=== PATIENT | female | born 1995 | race Caucasian/White ===

== ENCOUNTER → 2018-11-24 | Outpatient (CLI) | payer SELFPAY ==
[2018-11-24 18:25] LABS: Chlamydia Trachomatis by PCR Negative (Negative); Neisserai gonorrhoeae by PCR Negative (Negative); Probe Check PASS; Sample Adequacy Control PASS; Specimen Processing Control PASS
[2018-11-30 14:14] LABS: HPV Reflexed? NOT INDICATED
== END | disposition home or self-care (01) ==
LOC: LABSPEC 14:24
PROVIDERS: Visit Provider Obstetrics & Gynecology
DX: Z12.4 Encounter for screening for malignant neoplasm of cervix (principal); Z11.3 Encounter for screening for infections with a predominantly sexual mode of transmission
CPT/HCPCS: 87491; 87591; 88175; G0145

== ENCOUNTER → 2018-12-02 | Outpatient (CLI) | payer SELFPAY ==
[2018-12-02 16:40] LABS: Color, Urine Yellow (Yellow); Glucose, Dipstick Normal (Normal); Ketone-Dipstick Negative (Negative); Leukocyte Esterase-Dipstick 500 /ul (Negative); Nitrite-Dipstick Negative (Negative); Occult Blood-Urine Negative /ul (Negative); Protein-Dipstick Negative (Negative); Urine Bilirubin Dipstick Negative (Negative); Urine Clarity Clear (Clear); Urine Urobilinogen Normal (Normal)
[2018-12-02 17:43] LABS: Absolute Lymphocyte Count 1.23 X10^3/ul (0.83-4.51); Absolute Neutrophil Count 5.4 X10^3/uL (2.0-7.7); Basophil# 0.02 X10^3/uL; Basophil% 0.3 % (0-1); Eosinophil# 0.06 X10^3/uL; Eosinophils% 0.8 % (0-5); Hematocrit 36.2 % (37-47); Hemoglobin 12.4 g/dl (12.0-15.0); Lymphocyte # 1.23 X10^3/ul (4.0); Lymphocyte % 17.2 % (19-41); Mean Corp Hgb Conc 34.3 g/gl (32-36); Mean Corpuscular Hgb 28.9 pg (27.0-32.0); Mean Corpuscular Volume 84.4 fL (81-99); Mean Platelet Vol. 9.8 fl (6.2-12.0); Monocyte# 0.43 X10^3/uL; Neutrophil % 75.4 % (47-70); Platelet Count 240 K/mm3 (150-450); RBC Distribution Width CV 12.5 % (11.6-14.6); RBC Distribution Width SD 37.5 fl (35.1-43.9); Red Blood Count 4.29 M/mm3 (4.2-5.4); White Blood Count 7.2 K/mm3 (4.4-11.0)
[2018-12-02 17:48] LABS: Thyroid Stim Hormone (TSH) 2.74 uIU/mL (0.358-3.74)
[2018-12-02 18:04] LABS: POSITIVE COUNT NO; POSITIVE DIFFERENTIAL NO; POSITIVE MORPHOLOGY NO
[2018-12-02 18:30] LABS: HIV - WCH Non-Reactive (Nonreactive)
[2018-12-04 01:43] LABS: Prenatal RPR NONREACTIVE (NONREACTIVE)
[2018-12-04 13:26] LABS: HEPATITIS B SURFACE AG Negative (Negative); Hep C Antibodies <0.1 s/co ratio (0.0-0.9)
== END | disposition home or self-care (01) ==
LOC: WOBLAB 14:31
PROVIDERS: Visit Provider Obstetrics & Gynecology
DX: Z34.81 Encounter for supervision of other normal pregnancy, first trimester (principal)
CPT/HCPCS: 36415; 81002; 84443; 85025; 86703; 86762; 86803; 87340

== ENCOUNTER → 2019-04-16 | Outpatient (CLI) | payer SELFPAY ==
[2019-04-16 13:44] LABS: Hematocrit 34.6 % (37-47); Hemoglobin 11.3 g/dL (12.0-15.0); Mean Corp Hgb Conc 32.7 g/dL (32-36); Mean Corpuscular Volume 91.8 fL (81-99); Mean Platelet Vol. 9.8 fl (6.2-12.0); Platelet Count 180 K/mm3 (150-450); RBC Distribution Width CV 12.8 % (11.6-14.6); RBC Distribution Width SD 42.5 fl (35.1-43.9); Red Blood Count 3.77 M/mm3 (4.2-5.4); White Blood Count 8.2 K/mm3 (4.4-11.0)
[2019-04-16 13:52] LABS: Glucose Challenge Gest 1H 50g 94 mg/dL (70-140)
== END | disposition home or self-care (01) ==
PROVIDERS: Visit Provider Obstetrics & Gynecology
DX: Z34.82 Encounter for supervision of other normal pregnancy, second trimester (principal)
CPT/HCPCS: 36415; 82950; 85027

== ENCOUNTER → 2019-06-03 | Outpatient (CLI) | payer SELFPAY | END | disposition home or self-care (01) | LOC: LABSPEC 15:27 | PROVIDERS: Visit Provider Obstetrics & Gynecology | DX: O23.43 Unspecified infection of urinary tract in pregnancy, third trimester (principal); Z3A.00 Weeks of gestation of pregnancy not specified | CPT/HCPCS: 87086; 87088 ==

== ENCOUNTER 2019-06-07 19:37 | Inpatient (IN) | payer SELFPAY ==
[2019-06-07] VITALS (10 sets, daily range): BP systolic 104–155; BP diastolic 56–87; PULSE 60–75; RESP 16–18; TEMP 36.3–36.9; O2SAT 96–99; BMI 24.7
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
[2019-06-07] MEDS: Lactated Ringers 1,000 ML 999 ML IV (19:40)
[2019-06-07] MEDS: 0.9% Saline Lock 10 ML Syringe IV ×2 (19:40→23:15)
[2019-06-07 19:50] LABS: ROM Internal Control Test YES-OK TO RESULT pt. (Internal QC); ROM Patient Test Negative (Negative)
--- NOTE | 2019-06-07 19:53 | OP.PCM_ITS ---
Delivery Classification: CRYSTAL Final CARLOS: 07/13/19 Final CARLOS Source: US <20 weeks Gestational age: 34 Weeks and 6 Days doctor who attended delivery (if requested by OB): Keena Campbell supervisor pumping station: Neena Haider Type of Anesthesia:: Spinal - With Duramorph Implants Used: None Date of Procedure: 06/07/19 Pre-Operative Diagnosis: 34-Week 6-Day Gestation with Premature Rupture of Membranes, Breech Presentation, in Active Labor Post-Operative Diagnosis: 34-Week 6-Day Gestation with Premature Rupture of Membranes, Breech Presentation, in Active Labor Indications: Breech Presentation, Premature Rupture of Membranes, Active Labor Description of Procedure: Surgeon: Pankaj Hua MD, FACOG Anesthesia: Jr Kenny CRNA Procedure: Primary Low Transverse Cervical Caesarean Section Findings: Viable male with Apgars of 7/9 in aneta breech presentation with clear amniotic fluid and normal three-vessel placenta. Indication: This is a 24-year-old who presents for her first at 34w6d weeks gestation due to premature rupture of membranes and breech presentation in labor. care has otherwise been uneventful. The patient has been counseled regarding the risk and indications of this procedure including the possibility of bleeding infection and injury to surrounding structures such as bowel bladder. All questions were answered. Procedure: Patient was taken to the operating room where after spinal anesthesia was placed, the patient was prepped and draped in usual sterile fashion and a Angelo catheter was placed. The abdomen was entered through a Pfannenstiel incision and peritoneum was entered bluntly. After developing a bladder flap on the lower uterine segment a low transverse incision was made on the uterus and breech was delivered onto the operative field and nose mouth and oropharynx were bulb suctioned. Subsequently a viable male infant was born with Apgars of 7/9. The was noted to move all extremities vigorously on the operative field. The umbilical cord was doubly clamped and ligated and handed to the nursery personnel who were present for the delivery. Placenta was delivered and noted to be 3 vessels and normal. Uterus was exteriorized and remaining placental tissue was removed. The cervix was noted to be about 5 cm dilated and 85% effaced. The uterus was then closed in 2 layers first with running locked 0 Vicryl suture followed by a second imbricating layer with 0 Vicryl suture. 0 Vicryl suture was then used in a horizontal mattress interrupted fashion to affect final hemostasis of the uterine incision line. Normal fallopian tubes and ovaries were visualized and the uterus was returned to the pelvis. Hemostasis was noted and rectus abdominis muscles were reapproximated in the midline with interrupted Number 0 Vicryl suture in a horizontal mattress fashion. Fascia was closed with running Number 1 PDS Strata fix suture. Subcutaneous tissue was irrigated with copious amounts of saline solution and then closed with running 3-0 Vicryl suture. Skin was closed with 4-0 monocryl suture in a running subcuticular fashion. Steri strips and Mepilex dressing were placed across the incision. The patient tolerated the procedure well and was taken to the recovery room in satisfactory condition. Sponge, needle, and instrument counts were all reportedly correct. EBL was 500 cc. Ancef 2 gms IV was given prior to the procedure. Spicemen to Pathology: None Complications: None Amniotic Membrane Rupture Type: Spontaneous Amniotic Fluid Description: Clear Placenta Disposition: [facility] Specimen(s) sent to pathology: None Drain: Angelo to straight drain Cord Entanglement: None Cord Vessel Description: 3 Vessels Esitmated Blood Loss (ml): 500 cc Infant Gender: Male (1 minute): 7 (5 minute): 9 Antibiotic Given: Ancef 2 grams IV x1 Pt instructed on risks of surgery: Bleeding, Injury to surrounding structure(s) including bowel and bladder Complications: None - Admit VTE Documentation VTE Present on Admission: Yes VTE Mechan Device Prophylaxis: SCD's
[2019-06-07 19:54] LABS: Absolute Lymphocyte Count 1.63 X10^3/uL (0.83-4.51); Absolute Neutrophil Count 9.2 X10^3/uL (2.0-7.7); Basophil# 0.02 X10^3/uL; Basophil% 0.2 % (0-1); Eosinophil# 0.11 X10^3/uL; Eosinophils% 0.9 % (0-5); Hematocrit 32.6 % (37-47); Hemoglobin 10.7 g/dL (12.0-15.0); Lymphocyte # 1.63 X10^3/ul (4.0); Lymphocyte % 13.8 % (19-41); Mean Corp Hgb Conc 32.8 g/dL (32-36); Mean Corpuscular Hgb 28.7 pg (27.0-32.0); Mean Corpuscular Volume 87.4 fL (81-99); Monocyte% 5.9 % (0-10); NRBC Flagged by Analyzer 0 % (0-5); Neutrophil # 9.22 X10^3/uL (2.7-7.7); Neutrophil % 77.8 % (47-70); Platelet Count 207 K/mm3 (150-450); RBC Distribution Width CV 12.1 % (11.6-14.6); RBC Distribution Width SD 38.9 fl (35.1-43.9); Red Blood Count 3.73 M/mm3 (4.2-5.4); White Blood Count 11.9 K/mm3 (4.4-11.0)
--- NOTE | 2019-06-07 19:58 | DCINST_ITS ---
Discharge Diet: No Restrictions Discharge Activity: May not drive while taking narcotic pain medications., May Shower, May Take a Tub Bath May resume sexual activity in: 4-6 weeks Lifting Restrictions: 20 pounds Additional Activity Instructions:: Nothing in the vagina for 4-6 weeks. You may return to work/school in 6 weeks. Call your doctor if your incision/area has: Continuous Slow Oozing, Sudden Increased Bleeding, Increased Pain/ Swelling, Increased Redness, Foul Smelling Discharge Call your doctor if you observe: Fever of 101 or Higher, Inability to urinate, Inability to have a bowel movement, Using more than one pad per hour Additional Instructions: If you experience any of the following, contact your healthcare provider. * Bleeding that soaks a pad every hour for 2 hours * Unrelieved incision or abdominal pain * Swelling, redness, discharge or bleeding from your incision or episiotomy site * Your incision begins to separate * Problems urinating (including inability to urinate or burning while urinating). * Visual changes * Severe headache * Flu-like symptoms * Pain or redness in one of both of your breasts * Pain, warmth, tenderness or swelling in your legs, especially the calf area * Frequent nausea and vomiting * Symptoms of depression or anxiety If you experience any of the following, call 911 or go to the nearest Emergency Room. * Chest pain * Problems breathing * Seizure activity * Partial or complete paralysis of a body part, slurred speech, weakness or drooping of the face, or a sudden inability to walk or hold your balance Allergies/Adverse Reactions: Allergies No Known Allergies Allergy (Verified 06/07/19 19:45) Medications to take at Discharge Docusate Sodium [Colace] 100 mg PO BID PRN PRN #60 cap 06/07/19 Oxycodone [Oxyir] 5 mg PO Q6H PRN PRN 7 Days #20 tab 06/07/19 Sertraline HCl [Zoloft] 50 mg PO DAILY 06/07/19 The following prescriptions were given: Docusate Sodium [Colace] 100 mg PO BID PRN PRN #60 cap PRN Reason: Constipation Prescription Printed Oxycodone [Oxyir] 5 mg PO Q6H PRN PRN 7 Days #20 tab PRN Reason: Pain Score 6-10/10 Prescription Printed Follow-Up: Call to make an appointment with your doctor for an incision check in 1-2 weeks. You will also need a 6 week post- follow up appointment. Test results from this visit will be discussed in further detail at your follow- up appointment, if applicable. Please Follow Up With: Pankaj Hua MD - [phone] When: Call to make an appointment for an incision check in 2 weeks.
[2019-06-07] MEDS: Cefazolin 2 GM in 0.9% Normal Saline 100 ML IV (20:12)
[2019-06-07] MEDS: Sodium Citrate/Citric Acid 30 ML UDC PO (20:12)
[2019-06-07] MEDS: Oxytocin 30 units/NS 500 ml 30 UNITS/500 ML IV.SOLN 167 UNITS IV (21:30)
[2019-06-07] MEDS: proCHLORPERazine 10 MG/2 ML Vial IV (23:15)
[2019-06-08] VITALS (20 sets, daily range): BP systolic 105–137; BP diastolic 60–85; PULSE 65–95; RESP 14–18; TEMP 36.4–37.2; O2SAT 96–100
[2019-06-08] MEDS: Lactated Ringers 1,000 ML 100 ML IV (00:48)
[2019-06-08] MEDS: Ketorolac 30 MG/ML Syringe IV ×4 (02:53→23:18)
--- NOTE | 2019-06-08 03:03 | NURSING ---
abdominal muscle separation noted when doing fundus check on patient.
[2019-06-08] MEDS: Cefazolin 1 GM/50 ML BAG IV ×2 (04:35→13:20)
[2019-06-08 05:52] LABS: Hematocrit 31.2 % (37-47); Hemoglobin 10.4 g/dL (12.0-15.0); Mean Corp Hgb Conc 33.3 g/dL (32-36); Mean Corpuscular Hgb 29.5 pg (27.0-32.0); Mean Corpuscular Volume 88.4 fL (81-99); Mean Platelet Vol. 9.7 fl (6.2-12.0); Platelet Count 132 K/mm3 (150-450); RBC Distribution Width CV 12.1 % (11.6-14.6); RBC Distribution Width SD 38.7 fl (35.1-43.9); Red Blood Count 3.53 M/mm3 (4.2-5.4); White Blood Count 12.8 K/mm3 (4.4-11.0)
--- NOTE | 2019-06-08 08:48 | PCM.PN.OB ---
Subjective: Pain well controlled, tolerating limited diet, planning to advance today; passing flatus; has not yet dangled at side of bed, this is planned with RN for later this AM; in special care nursery, pt is bottle feeding Objective: AVSS Breasts soft Fundus firm, midline, u/1, lochia small Low transverse abdominal dressing dry, intact - Physical Exam Vitals/I&O's: Vital Signs Temp Pulse Resp BP Pulse Ox 97.5 F L 72 16 109/64 98 06/08/19 06:00 06/08/19 07:00 06/08/19 07:00 06/08/19 06:00 06/08/19 07:00 Oxygen Delivery Method Room Air Weight: 149 lb Body Mass Index (BMI) 24.7 Intake and Output for Last 24 Hours 06/06/19 06/07/19 06/08/19 23:59 23:59 23:59 Intake Total 1944 / 1944 216 / 216 Output Total 1450 / 1450 600 / 600 Balance 494 / 494 -384 / -384 General: Alert, Oriented x3, Cooperative, No apparent distress HEENT: PERRLA, EOMI Oral: Moist Mucosa Neck: Supple Lungs: Clear to auscultation, Normal air movement Cardiovascular: Regular rate, Regular Rhythm Abdomen: Bowel Sounds Present, Soft, Non Tender, Non-Distended, Passing Flatus Extremities: No edema Skin: No rashes Musculoskeletal: No Tenderness to Palpation of Joints or Extremities Neurological: Cranial nerves II-XII grossly intact, Deep Tendon Reflexes 2+/4 and Symmetrical Psych/Mental Status: Normal Affect, Appropriate, Alert and oriented to time, place, person, mood and affect Laboratory Results 06/07/19 19:00: Vag Amniotic Fld Detect Negative 06/07/19 19:40: WBC 11.9 H, RBC 3.73 L, Hgb 10.7 L, Hct 32.6 L, MCV 87.4, MCH 28.7, MCHC 32.8, RDW Std Deviation 38.9, RDW Coeff of Bang 12.1, Plt Count 207, MPV 10.0, Immature Gran % (Auto) 1.400 H, Neut % (Auto) 77.8 H, Lymph % (Auto) 13.8 L, [place] % (Auto) 5.9, Eos % (Auto) 0.9, Baso % (Auto) 0.2, Absolute Neuts (auto) 9.2 H, Absolute Lymphs (auto) 1.63, Nucleated RBC % 0 06/07/19 19:40: Blood Type B POSITIVE, Antibody Screen NEGATIVE 06/08/19 05:40: WBC 12.8 H, RBC 3.53 L, Hgb 10.4 L, Hct 31.2 L, MCV 88.4, MCH 29.5, MCHC 33.3, RDW Std Deviation 38.7, RDW Coeff of Bang 12.1, Plt Count 132 L, MPV 9.7 Current Medications Acetaminophen (Tylenol) 1,000 mg PO Q8H PRN PRN PRN Reason: Pain Score 1-3/10 Bisacodyl (Dulcolax) 10 mg RECTAL UD PRN PRN Reason: If no BM Hydrocortisone (Hytone) 1 applic TOPICAL TID PRN PRN; Protocol PRN Reason: Discomfort Lactated Ringer's () 1,000 mls @ 100 mls/hr IV .Q10H [facility] Last Admin: 06/08/19 00:48 Dose: 100 mls/hr Documented by: Naloxone HCl 4 mg/ Dextrose 504 mls @ 0 mls/hr IV .Q0M PRN; Protocol PRN Reason: Respiratory depression Cefazolin Sodium () 1 gm in 50 mls @ 150 mls/hr IV Q8H [facility] Stop: 06/08/19 12:19 Last Infusion: 06/08/19 05:08 Dose: Infused Documented by: Ibuprofen (Motrin) 600 mg PO Q6H PRN PRN PRN Reason: Pain Score 1-3/10 Ketorolac Tromethamine (Toradol) 30 mg IV Q6H [facility] Stop: 06/09/19 20:01 Last Admin: 06/08/19 02:53 Dose: 30 mg Documented by: Measles/Mumps/Rubella Vaccine Live (M-M-R Ii) 0.5 ml SC .ONCE ONE Stop: 06/08/19 10:01 Methylergonovine Maleate (Methergine) 0.2 mg IM X1 PRN PRN Reason: Uterine Atony Nalbuphine HCl (Nubain) 5 mg IV Q3H PRN PRN PRN Reason: ITCHING Stop: 06/08/19 21:39 Naloxone HCl (Narcan) 0.02 mg IV Q1M PRN PRN Reason: RR <10 and pt unresponsive Ondansetron HCl (Zofran) 4 mg IV Q4H PRN PRN PRN Reason: Nausea Oxycodone HCl (Oxyir) 5 - 10 mg PO Q4H PRN PRN PRN Reason: Pain Score 4-10/10 Prochlorperazine Edisylate (Compazine Iv) 10 mg IV Q6H PRN PRN PRN Reason: NAUSEA Last Admin: 06/07/19 23:15 Dose: 10 mg Documented by: Senna/Docusate Sodium (Senokot-S, Tatiana-Colace) 1 - 2 tablet PO DAILY PRN PRN Reason: Constipation Sertraline HCl (Zoloft) 50 mg PO DAILY TIFFANIE Simethicone (Mylicon) 80 mg PO PCHS PRN PRN Reason: Indigestion/stomach pain Sodium Chloride () 5 - 15 ml IV UD PRN PRN Reason: SALINE FLUSH Last Admin: 06/07/19 23:15 Dose: 10 ml Documented by: Medical Necessity - Tobacco Use Smoking Status: Never smoker Assessment/Plan Assessment: 24 yo G2 now P012 delivered by primary LTCS at 34w6d gestation Normal involution, normal postoperative/ course Plan: Continue routine care Will remove dressing tomorrow
[2019-06-08] MEDS: 0.9% Saline Lock 10 ML Syringe IV ×3 (10:07→23:18)
[2019-06-08] MEDS: Sertraline 50 MG Tablet PO (10:47)
[2019-06-09 02:28] VITALS: BP 119/79; PULSE 61; RESP 16; TEMP 36.4; O2SAT 97
[2019-06-09] MEDS: Ketorolac 30 MG/ML Syringe IV ×4 (04:49→22:25)
[2019-06-09] MEDS: 0.9% Saline Lock 10 ML Syringe IV ×4 (04:50→22:26)
--- NOTE | 2019-06-09 08:13 | PCM.PN.OB ---
Subjective: Pain well controlled, tolerating diet, passing flatus; has been up walking, doing well; remains in SCN, pt is bottle feeding Objective: AVSS Breasts soft fundus firm, midline, u/2, lochia scant Incision well approximated, no edema or erythema, steri strips intact with small amount of dried drainage - Physical Exam Vitals/I&O's: Vital Signs Temp Pulse Resp BP Pulse Ox 97.5 F L 61 16 119/79 97 06/09/19 02:28 06/09/19 02:28 06/09/19 02:28 06/09/19 02:28 06/09/19 02:28 Oxygen Delivery Method Room Air Weight: 149 lb Body Mass Index (BMI) 24.7 Intake and Output for Last 24 Hours 06/07/19 06/08/19 06/09/19 23:59 23:59 23:59 Intake Total 1944 / 1944 1682.67 / 1682.67 Output Total 1450 / 1450 1999 / 1999 Balance 494 / 494 -317.33 / -317.33 General: Alert, Oriented x3, Cooperative, No apparent distress HEENT: PERRLA, EOMI Oral: Moist Mucosa Neck: Supple Lungs: Clear to auscultation, Normal air movement Cardiovascular: Regular rate, Regular Rhythm Abdomen: Bowel Sounds Present, Soft, Non Tender, Non-Distended, Passing Flatus Extremities: No edema, No Calf Tenderness Skin: No rashes Musculoskeletal: No Tenderness to Palpation of Joints or Extremities Neurological: Cranial nerves II-XII grossly intact, Deep Tendon Reflexes 2+/4 and Symmetrical Psych/Mental Status: Normal Affect, Appropriate, Alert and oriented to time, place, person, mood and affect Current Medications Acetaminophen (Tylenol) 1,000 mg PO Q8H PRN PRN PRN Reason: Pain Score 1-3/10 Bisacodyl (Dulcolax) 10 mg RECTAL UD PRN PRN Reason: If no BM Hydrocortisone (Hytone) 1 applic TOPICAL TID PRN PRN; Protocol PRN Reason: Discomfort Naloxone HCl 4 mg/ Dextrose 504 mls @ 0 mls/hr IV .Q0M PRN; Protocol PRN Reason: Respiratory depression Ibuprofen (Motrin) 600 mg PO Q6H PRN PRN PRN Reason: Pain Score 1-3/10 Ketorolac Tromethamine (Toradol) 30 mg IV Q6H [facility] Stop: 06/09/19 23:01 Last Admin: 06/09/19 04:49 Dose: 30 mg Documented by: Methylergonovine Maleate (Methergine) 0.2 mg IM X1 PRN PRN Reason: Uterine Atony Naloxone HCl (Narcan) 0.02 mg IV Q1M PRN PRN Reason: RR <10 and pt unresponsive Ondansetron HCl (Zofran) 4 mg IV Q4H PRN PRN PRN Reason: Nausea Oxycodone HCl (Oxyir) 5 - 10 mg PO Q4H PRN PRN PRN Reason: Pain Score 4-10/10 Prochlorperazine Edisylate (Compazine Iv) 10 mg IV Q6H PRN PRN PRN Reason: NAUSEA Last Admin: 06/07/19 23:15 Dose: 10 mg Documented by: Senna/Docusate Sodium (Senokot-S, Tatiana-Colace) 1 - 2 tablet PO DAILY PRN PRN Reason: Constipation Sertraline HCl (Zoloft) 50 mg PO DAILY [facility] Last Admin: 06/08/19 10:47 Dose: 50 mg Documented by: Simethicone (Mylicon) 80 mg PO PCHS PRN PRN Reason: Indigestion/stomach pain Sodium Chloride () 5 - 15 ml IV UD PRN PRN Reason: SALINE FLUSH Last Admin: 06/09/19 04:50 Dose: 10 ml Documented by: Medical Necessity - Tobacco Use Smoking Status: Never smoker Assessment/Plan Assessment: 24 yo G2 now P012 delivered by primary LTCS at 34w6d gestation PO Day #2, Normal involution, normal postoperative/ course Plan: Dressing removed Continue routine care
[2019-06-09 08:18] VITALS: BP 114/76; PULSE 72; RESP 16; TEMP 36.8; O2SAT 96
[2019-06-09] MEDS: Senna/Docusate Sodium 1 Tablet PO (10:46)
[2019-06-09] MEDS: Sertraline 50 MG Tablet PO (10:46)
--- NOTE | 2019-06-09 12:10 | CASEMGMT ---
Social Work Labor and Delivery Unit ? Date of Referral:?06.09.2019 Time of Referral:?0127 Referral Source: Dr. Hua Date of Intervention:?06.09.2019 Time of Intervention:?1210 ? Reason for Referral:?maternal history of depression; baby is in [facility] Informant: ?Medical record and mother of baby (MOB) Sherry Slade. *Educated MOB that this brief writer also provides social work to [facility] for continuity of care of families whose babies are admitted to the [facility] ? History MOB is a 24 year old female, to father of baby (FOB) Anirudh Slade since 2016. ??Parents are Tod. ??MOB is G2, P0 to 1 after delivering baby boy Arcadio at [facility]. ?MOB had one previous which ended in miscarriage at 10 weeks in August 2017. ?? care with Arcadio started at 8 weeks gestation. ??Arcadio delivered at 34 weeks, weighed 5 pounds 14 ounces with Apgars 7 and 9 at 1 and 5 minutes respectively. ??Chart indicates that CARSON has 2 cousins with Down's syndrome and FOB's side has hemophilia. ??MOB has history of depression, and treated with Zoloft prior to continuing through with increase of dosage to 100 mg. ?MOB denies every thinking of or considering suicide. ?Reports MOB's mom and sisters also have depression, with CARSON's mother also having depression history. ?MOB denies any history of substance use or abuse. ?FOCharly does smoke tobacco but this is outside of the home. ?MOB reports to live with FOB, that home situation is safe and adequate. ?FOB works in [employer]. ??MOB and FOB both have an 8th grade education, as is the norm for the [employer] [facility] community. ?? ? Impression Met with MOB at baby's bedside. ?MOB holding baby and attentive to baby. ?MOB's affect constricted but smiled at appropriate times, and did smile when talking about baby. ??MOB reports to have needed baby supplies to get started at home including safe sleep space. ?MOB reports FOCharly is purchasing a new car seat as the one the parents have currently is by 6 months. ??MOB reports this will not be an issue to purchase. ??MOB has her sister set to come to the home for 6 weeks to help out, as is a common tradition on the [facility] culture. ?MOB and FOB will be hiring a driver engineer when baby is ready to discharge home. ?Talked with MOB about risk for depression, importance of letting healthcare providers know if symptoms change or worsen. ?At this time MOB reports to feel her depression is stable and that Zoloft is working well. ??No concerns have been voiced to this brief writer thus far regarding parent/child interactions. ? ? Plan Baby to home with parents when ready for discharge. ? CARSON has been provided with information on depression and anxiety and resources. ?? Social work does remain available as needed during hospital stay at [facility] or on the [facility].?? ? Response to Plan:?MOB?does express understanding of proposed plan. No other services requested or indicated at this time. ? LUPE Bar, FLAT FOLDING MACHINE OPERATOR
[2019-06-09 13:39] VITALS: BP 117/66; PULSE 64; RESP 16; TEMP 36.9; O2SAT 96
[2019-06-09 20:38] VITALS: BP 120/71; PULSE 74; RESP 16; TEMP 36.8; O2SAT 97
[2019-06-10 02:30] VITALS: BP 127/86; PULSE 60; RESP 16; TEMP 36.8; O2SAT 97
--- NOTE | 2019-06-10 07:51 | PCM.PN.OB ---
Subjective: Pain well controlled, tolerating diet, passing flatus; has been up walking, doing well; remains in SCN, pt is bottle feeding Objective: AVSS Breasts filling fundus firm, midline, u/2, lochia scant Incision well approximated, no edema or erythema, steri strips intact with small amount of dried drainage and no new drainage today - Physical Exam Vitals/I&O's: Vital Signs Temp Pulse Resp BP Pulse Ox 98.2 F 60 16 127/86 H 97 06/10/19 02:30 06/10/19 02:30 06/10/19 02:30 06/10/19 02:30 06/10/19 02:30 Oxygen Delivery Method Room Air Weight: 149 lb Body Mass Index (BMI) 24.7 Intake and Output for Last 24 Hours 06/08/19 06/09/19 06/10/19 23:59 23:59 23:59 Intake Total 1682.67 / 1682.67 Output Total 1999 Balance -317.33 / -317.33 General: Alert, Oriented x3, Cooperative, No apparent distress HEENT: PERRLA, EOMI Oral: Moist Mucosa Neck: Supple Lungs: Clear to auscultation, Normal air movement Cardiovascular: Regular rate, Regular Rhythm Abdomen: Bowel Sounds Present, Soft, Non Tender, Non-Distended, Passing Flatus Extremities: No edema Skin: No rashes Musculoskeletal: No Tenderness to Palpation of Joints or Extremities Neurological: Cranial nerves II-XII grossly intact, Deep Tendon Reflexes 2+/4 and Symmetrical Psych/Mental Status: Normal Affect, Appropriate, Alert and oriented to time, place, person, mood and affect Current Medications Acetaminophen (Tylenol) 1,000 mg PO Q8H PRN PRN PRN Reason: Pain Score 1-3/10 Bisacodyl (Dulcolax) 10 mg RECTAL UD PRN PRN Reason: If no BM Hydrocortisone (Hytone) 1 applic TOPICAL TID PRN PRN; Protocol PRN Reason: Discomfort Ibuprofen (Motrin) 600 mg PO Q6H PRN PRN PRN Reason: Pain Score 1-3/10 Methylergonovine Maleate (Methergine) 0.2 mg IM X1 PRN PRN Reason: Uterine Atony Oxycodone HCl (Oxyir) 5 - 10 mg PO Q4H PRN PRN PRN Reason: Pain Score 4-10/10 Documented by: Senna/Docusate Sodium (Senokot-S, Tatiana-Colace) 1 - 2 tablet PO DAILY PRN PRN Reason: Constipation Last Admin: 06/09/19 10:46 Dose: 2 tablet Documented by: Sertraline HCl (Zoloft) 50 mg PO DAILY TIFFANIE Last Admin: 06/09/19 10:46 Dose: 50 mg Documented by: Simethicone (Mylicon) 80 mg PO HS PRN PRN Reason: Indigestion/stomach pain Medical Necessity - Tobacco Use Smoking Status: Never smoker Assessment/Plan Assessment: 24 yo G2 now P012 delivered by primary LTCS at 34w6d gestation PO Day #3, Normal involution, normal postoperative/ course Plan: Discharge teaching completed Discharge today, pt will remain on Hotel status with infant in SCN
--- NOTE | 2019-06-10 07:56 | PCM.DC.SUM ---
Discharge Date and Diagnosis Date of Admission: 06/07/19 Date of Discharge: 06/10/19 - Primary Discharge Diagnosis s/p Repeat Section Hospital Course and Treatment Procedures: None Summary of Care Provided: This is a 24-year-old 2 para 0 AB 1 who presented to labor and delivery by squad with gross rupture of membranes. She was 34 weeks gestation. Bedside ultrasound showed baby to be in a aneta breech presentation. Gross rupture of membranes was noted. A decision was made to proceed with repeat section. Post operative course has been uneventful. Infant remains in SCN at this time. Subjective: Pain well controlled, tolerating diet, passing flatus; has been up walking, doing well; infant remains in SCN, pt is bottle feeding Objective: AVSS Breasts filling fundus firm, midline, u/2, lochia scant Incision well approximated, no edema or erythema, steri strips intact with small amount of dried drainage and no new drainage today - Physical Exam Vitals/I&O's: Vital Signs Temp Pulse Resp BP Pulse Ox 98.2 F 60 16 127/86 H 97 06/10/19 02:30 06/10/19 02:30 06/10/19 02:30 06/10/19 02:30 06/10/19 02:30 Oxygen Delivery Method Room Air Weight: 149 lb Body Mass Index (BMI) 24.7 Intake and Output for Last 24 Hours 06/08/19 06/09/19 06/10/19 23:59 23:59 23:59 Intake Total 1682.67 / 1682.67 Output Total 1999 Balance -317.33 / -317.33 General: Alert, Oriented x3, Cooperative, No apparent distress HEENT: PERRLA, EOMI Oral: Moist Mucosa Neck: Supple Lungs: Clear to auscultation, Normal air movement Cardiovascular: Regular rate, Regular Rhythm Abdomen: Bowel Sounds Present, Soft, Non Tender, Non-Distended, Passing Flatus Extremities: No edema Skin: No rashes Musculoskeletal: No Tenderness to Palpation of Joints or Extremities Neurological: Cranial nerves II-XII grossly intact, Deep Tendon Reflexes 2+/4 and Symmetrical Psych/Mental Status: Normal Affect, Appropriate, Alert and oriented to time, place, person, mood and affect Current Medications Acetaminophen (Tylenol) 1,000 mg PO Q8H PRN PRN PRN Reason: Pain Score 1-3/10 Bisacodyl (Dulcolax) 10 mg RECTAL UD PRN PRN Reason: If no BM Hydrocortisone (Hytone) 1 applic TOPICAL TID PRN PRN; Protocol PRN Reason: Discomfort Ibuprofen (Motrin) 600 mg PO Q6H PRN PRN PRN Reason: Pain Score 1-3/10 Methylergonovine Maleate (Methergine) 0.2 mg IM X1 PRN PRN Reason: Uterine Atony Oxycodone HCl (Oxyir) 5 - 10 mg PO Q4H PRN PRN PRN Reason: Pain Score 4-10/10 Senna/Docusate Sodium (Senokot-S, Tatiana-Colace) 1 - 2 tablet PO DAILY PRN PRN Reason: Constipation Last Admin: 06/09/19 10:46 Dose: 2 tablet Documented by: Sertraline HCl (Zoloft) 50 mg PO DAILY TIFFANIE Last Admin: 06/09/19 10:46 Dose: 50 mg Documented by: Simethicone (Mylicon) 80 mg PO PCHS PRN PRN Reason: Indigestion/stomach pain Discharge Diet: No Restrictions Discharge Activity: Return to Normal Activity, May not drive while taking narcotic pain medications., May Shower, May Take a Tub Bath May resume sexual activity in: 4-6 weeks Additional Activity Instructions:: Nothing in the vagina for 4-6 weeks. You may return to work/school in 6 weeks. Call your doctor if your incision/area has: Continuous Slow Oozing, Sudden Increased Bleeding, Increased Pain/ Swelling, Increased Redness, Foul Smelling Discharge Call your doctor if you observe: Fever of 101 or Higher, Inability to urinate, Inability to have a bowel movement, Using more than one pad per hour Home Medications: Medications to take at Discharge Docusate Sodium [Colace] 100 mg PO BID PRN PRN #60 cap 06/07/19 Oxycodone [Oxyir] 5 mg PO Q6H PRN PRN 7 Days #20 tab 06/07/19 Sertraline HCl [Zoloft] 50 mg PO DAILY 06/07/19 Following Prescrptions Were Given to Patient: Docusate Sodium [Colace] 100 mg PO BID PRN PRN #60 cap PRN Reason: Constipation Prescription Printed Oxycodone [Oxyir] 5 mg PO Q6H PRN PRN 7 Days #20 tab PRN Reason: Pain Score 6-10 Prescription Printed Please Follow Up With: Pankaj Hua MD - [phone] When: Call to make an appointment for an incision check in 2 weeks. Please Follow Up With: Pankaj Hua MD When: Call to make an appointment for 6 week visit Medical Necessity - Tobacco Use Smoking Status: Never smoker Meaningful Use Info Meaningful Use Diagnoses (Choose all that apply): None applicable
[2019-06-10 08:40] VITALS: BP 121/72; PULSE 82; RESP 14; TEMP 36.6
--- NOTE | 2019-06-10 08:59 | NURSING ---
significant size mass observed in patients right axillary area, soft, nontender, not reddened. Pt. denies any previous swelling, observed first time this morning. Tabitha Damon CNM, notified of finding immediately and said she would go in to see patient
--- NOTE | 2019-06-10 11:03 | PN.OBGYN_ITS ---
Subjective: Notified by RN that pt c/o tender area under R arm, and noticed a lump; pt is attempting to suppress by wearing a bra 10/03, non underwire Objective: two adjacent, 3cm x 3cm tender, approx 1cm-raised, mobile masses under R arm, outer Tail of [place] - Physical Exam Vitals/I&O's: Vital Signs Temp Pulse Resp BP Pulse Ox 97.9 F 82 14 121/72 H 97 06/10/19 08:40 06/10/19 08:40 06/10/19 08:40 06/10/19 08:40 06/10/19 02:30 Oxygen Delivery Method Room Air Weight: 149 lb Body Mass Index (BMI) 24.7 Intake and Output for Last 24 Hours 06/08/19 06/09/19 06/10/19 23:59 23:59 23:59 Intake Total 1682.67 / 1682.67 Output Total 1999 Balance -317.33 / -317.33 General: Alert, Oriented x3, Cooperative, No apparent distress HEENT: PERRLA, EOMI Oral: Moist Mucosa Neck: Supple Psych/Mental Status: Normal Affect, Alert and oriented to time, place, person, mood and affect Current Medications Acetaminophen (Tylenol) 1,000 mg PO Q8H PRN PRN PRN Reason: Pain Score 1-3/10 Bisacodyl (Dulcolax) 10 mg RECTAL UD PRN PRN Reason: If no BM Hydrocortisone (Hytone) 1 applic TOPICAL TID PRN PRN; Protocol PRN Reason: Discomfort Ibuprofen (Motrin) 600 mg PO Q6H PRN PRN PRN Reason: Pain Score 1-3/10 Methylergonovine Maleate (Methergine) 0.2 mg IM X1 PRN PRN Reason: Uterine Atony Ondansetron HCl (Zofran) 4 mg IV Q4H PRN PRN PRN Reason: Nausea Oxycodone HCl (Oxyir) 5 - 10 mg PO Q4H PRN PRN PRN Reason: Pain Score 4-10/10 Senna/Docusate Sodium (Senokot-S, Tatiana-Colace) 1 - 2 tablet PO DAILY PRN PRN Reason: Constipation Last Admin: 06/09/19 10:46 Dose: 2 tablet Documented by: Sertraline HCl (Zoloft) 50 mg PO DAILY TIFFANIE Last Admin: 06/09/19 10:46 Dose: 50 mg Documented by: Simethicone (Mylicon) 80 mg PO [facility] PRN PRN Reason: Indigestion/stomach pain Medical Necessity - Tobacco Use Smoking Status: Never smoker Assessment/Plan Assessment: Breast duct occlusion Plan: Ice packs, cabbage leaves if desired, may bind with jazmín wrap if desired; contact provider if no improvement
[2019-06-10] MEDS: Ibuprofen 600 MG Tablet PO (11:10)
[2019-06-10] MEDS: Sertraline 50 MG Tablet PO (11:10)
[2019-06-10] MEDS: oxyCODONE 5 MG Tablet PO ×2 (14:22→18:52)
[2019-06-10 14:25] VITALS: BP 116/60; PULSE 60; RESP 14; TEMP 36.8
[2019-06-10 18:55] VITALS: BP 118/72; PULSE 78; TEMP 36.7
--- NOTE | 2019-06-10 18:55 | NURSING ---
pt in special care nursery with baby
== END 2019-06-10 18:55 | disposition home or self-care (01) | DRG 788 ==
LOC: WPOUT 19:37
PROVIDERS: Admitting Provider Obstetrics & Gynecology; Referring Provider Obstetrics & Gynecology; Visit Provider Obstetrics & Gynecology
DX: O32.1XX0 Maternal care for breech presentation, not applicable or unspecified (principal); O42.013 Preterm premature rupture of membranes, onset of labor within 24 hours of rupture, third trimester; Z3A.34 34 weeks gestation of pregnancy; Z37.0 Single live birth; O92.79 Other disorders of lactation
CPT/HCPCS: 59025; 59050; 76815; 84112; 85025; 85027; 86850; 86900; 86901; 99218; J7120; A4216; G0378; J2405